=== PATIENT | male | born 1995 | race Caucasian/White ===

== ENCOUNTER → 2018-04-27 | Outpatient (CLI) | payer OTHER ==
[2018-04-30 03:12] LABS: CHLAMYDIA TRACHOMATIS, NAA Negative (Negative); NEISSERIA GONORRHOEAE, NAA Negative (Negative)
== END | disposition home or self-care (01) ==
LOC: LAB EV 13:28 → LAB SHORT 13:28
PROVIDERS: Family Medicine
DX: N34.2 Other urethritis (principal)
CPT/HCPCS: 87491; 87591